=== PATIENT | female | born 1960 | race Two or more races ===

== ENCOUNTER 2017-11-16 16:46 | Emergency (ER) | payer OTHER ==
--- NOTE | 2017-11-16 17:24 | ER Document Report ---
ED Medical Screen (RME) - General Chief Complaint: Arrhythmia Stated Complaint: SHORTNESS OF BREATH Time Seen by Provider: 11/16/17 17:10 Mode of Arrival: Ambulatory Information source: Patient Notes: Patient is a 57-year-old female with a history of cirrhosis of the liver presents to the emergency department complaining of shortness of breath and chest pain onset 1 month ago. Patient was sent here by the [place] clinic to rule out a blood clot or [place]. Patient states that her symptoms have been progressively getting worse over the past month. Patient states that her shortness of breath is worse with exertion. Patient denies any black or red stool. GENERAL: Alert, interacts well. No acute distress. HEAD: Normocephalic, Atraumatic. NECK: Full range of motion. Supple. Trachea midline. LUNGS: Clear to auscultation bilaterally, no wheezes, rales, or rhonchi. No respiratory distress. HEART: Systolic murmur. ABDOMEN: Soft, non-tender. Non-distended. Bowel sounds present in all 4 quadrants. EXTREMITIES: Moves all four extremities spontaneously. PSYCH: Normal affect, normal mood. I have greeted and performed a rapid initial assessment of this patient. A comprehensive ED assessment and evaluation of the patient, analysis of test results and completion of the medical decision making process will be conducted by additional ED providers. TRAVEL OUTSIDE OF THE [place] IN LAST 30 DAYS: No - Related Data Allergies/Adverse Reactions: No Known Allergies Allergy (Verified 11/16/17 16:47) Past Medical History - Social History Chew tobacco use (# tins/day): No Frequency of alcohol use: None Drug Abuse: None - Past Medical History Cardiac Medical History: Denies: Hx Coronary Artery Disease, Hx Heart Attack, Hx Hypertension Pulmonary Medical History: Denies: Hx Asthma, Hx Bronchitis, Hx COPD, Hx Pneumonia Neurological Medical History: Denies: Hx Cerebrovascular Accident, Hx Seizures Renal/ Medical History: Denies: Hx Peritoneal Dialysis Musculoskeltal Medical History: Denies Hx Arthritis Past Surgical History: Reports: Hx Hysterectomy - Immunizations Hx Diphtheria, Pertussis, Tetanus Vaccination: Yes Physical Exam - Vital signs Vitals: Temp Pulse Resp BP Pulse Ox 98.0 F 74 18 142/75 H 93 11/16/17 16:57 11/16/17 16:57 11/16/17 16:57 11/16/17 16:57 11/16/17 16:57 Course - Vital Signs Vital signs: Temp Pulse Resp BP Pulse Ox 98.0 F 74 18 142/75 H 93 11/16/17 16:57 11/16/17 16:57 11/16/17 16:57 11/16/17 16:57 11/16/17 16:57 Scribe Documentation - Scribe Written by Jarett:: Jarett Nichols, 11/15/2017 17:28 acting as scribe for :: Sean
--- NOTE | 2017-11-16 17:38 | RADIOLOGY REPORT (SQ) ---
EXAM DESCRIPTION: CHEST PA/LAT COMPLETED DATE/TIME: 11/16/2017 5:30 pm REASON FOR STUDY: sob COMPARISON: None. EXAM PARAMETERS: NUMBER OF VIEWS: two views TECHNIQUE: Digital Frontal and Lateral radiographic views of the chest acquired. RADIATION DOSE: NA LIMITATIONS: none FINDINGS: LUNGS AND PLEURA: No localized infiltrates are present. The interstitial markings are pro minent. MEDIASTINUM AND HILAR STRUCTURES: No masses or contour abnormalities. HEART AND VASCULAR STRUCTURES: Heart normal size. No evidence for failure. BONES: No acute findings. HARDWARE: None in the chest. OTHER: No other significant finding. IMPRESSION: There appear to be mild chronic interstitial changes. No localized pneumonia is seen. TECHNICAL DOCUMENTATION: JOB ID: [id number] [employer]- All Rights Reserved Reading location - IP/workstation name: [email or web address]
[2017-11-16 17:53] LABS: ABSOLUTE EOSINOPHILS # (AUTO) 0.2 10^3/uL (0.0-0.6); ABSOLUTE MONOCYTES (AUTO) 0.4 10^3/uL (0.1-1.4); ABSOLUTE NEUT (AUTO) 1.8 10^3/uL (1.7-8.2); BASOPHILS % (AUTO) 0.8 % (0-2); EOSINOPHILS % (AUTO) 4.7 % (0-6); HEMATOCRIT 43.3 % (36.0-47.0); HEMOGLOBIN 15.2 g/dL (12.0-15.5); LYMPHOCYTES % (AUTO) 29.4 % (13-45); MEAN CORPUSCULAR HEMOGLOBIN 30.8 pg (27.0-33.4); MEAN CORPUSCULAR VOLUME 88 fl (80-97); MONOCYTES % (AUTO) 12.1 % (3-13); RED BLOOD COUNT 4.92 10^6/uL (3.72-5.28); RED CELL DISTRIBUTION WIDTH 15.5 % (11.5-14.0); TOTAL CELLS COUNTED % (AUTO) 100 %; WHITE BLOOD COUNT 3.5 10^3/uL (4.0-10.5)
[2017-11-16 18:09] LABS: ALANINE AMINOTRANSFERASE 29 U/L (9-52); ALBUMIN 3.4 g/dL (3.5-5.0); ALKALINE PHOSPHATASE 118 U/L (38-126); ANION GAP 8 (5-19); ASPARTATE AMINO TRANSFERASE 36 U/L (14-36); BILIRUBIN,DIRECT 0.9 mg/dL (0.0-0.4); BLOOD UREA NITROGEN 9 mg/dL (7-20); CALCIUM 8.5 mg/dL (8.4-10.2); CARBON DIOXIDE 23 mmol/L (22-30); CHLORIDE 113 mmol/L (98-107); GLUCOSE 72 mg/dL (75-110); POTASSIUM 3.8 mmol/L (3.6-5.0); SODIUM 143.7 mmol/L (137-145); TOTAL PROTEIN 6.4 g/dL (6.3-8.2)
[2017-11-16 18:18] LABS: PLATELET COUNT 52 10^3/uL (150-450)
[2017-11-16 18:20] LABS: NT PRO BNP 59 pg/mL (5-900)
[2017-11-16 18:23] LABS: TROPONIN I < 0.012 ng/mL
--- NOTE | 2017-11-16 19:03 | ER Document Report ---
ED General - General Chief Complaint: Breathing Difficulty Stated Complaint: SHORTNESS OF BREATH Time Seen by Provider: 11/16/17 17:10 Mode of Arrival: Ambulatory Notes: Patient is a 57-year-old female with a past medical history of liver cirrhosis secondary to hepatitis C who presents with 1 month of progressively worsening shortness of breath and chest discomfort. She describes shortness of breath has been constant but much significantly worsened by exertion. She reports that even bending over or walking to the restroom gets her completely out of breath. She saw her primary doctor at the [place] today and was referred to the emergency department for further evaluation due to her reported concerns and noted hypoxia in the clinic. She denies any former use of tobacco, no exposure to inhalation injuries, and no known history of COPD, asthma, congestive heart failure, or fibrotic lung disease. She does report 2 years ago she had a bronchoscopy done at [facility] when she was having hemoptysis. She states that they noted several lesions in her lung but did not biopsy due to concern of baseline thrombocytopenia secondary to her cirrhosis. Patient states nothing is new or different about her symptoms that prompted a visit to the emergency department other than her [place] doctor telling her that she needed to be seen urgently. She does describe her pain in her chest as being more of a tightness that is present when she is exerting herself or when she becomes very short of breath. No radiation of the pain. Nothing improves or worsens her symptoms. Prior to the past 1 month she denies any history of similar symptoms in the past. TRAVEL OUTSIDE OF THE [place] IN LAST 30 DAYS: No - Related Data Allergies/Adverse Reactions: No Known Allergies Allergy (Verified 11/16/17 16:47) Past Medical History - General Information source: Patient - Social History Smoking Status: Never Smoker Chew tobacco use (# tins/day): No Frequency of alcohol use: None Drug Abuse: None Lives with: Alone Family History: Reviewed & Not Pertinent Patient has suicidal ideation: No Patient has homicidal ideation: No - Past Medical History Cardiac Medical History: Denies: Hx Coronary Artery Disease, Hx Heart Attack, Hx Hypertension Pulmonary Medical History: Denies: Hx Asthma, Hx Bronchitis, Hx COPD, Hx Pneumonia Neurological Medical History: Denies: Hx Cerebrovascular Accident, Hx Seizures Renal/ Medical History: Denies: Hx Peritoneal Dialysis Musculoskeltal Medical History: Denies Hx Arthritis Past Surgical History: Reports: Hx Section, Hx Hysterectomy - Immunizations Hx Diphtheria, Pertussis, Tetanus Vaccination: Yes Review of Systems - Review of Systems Notes: Constitutional: Negative for fever. HENT: Negative for sore throat. Eyes: Negative for visual changes. Cardiovascular: Positive for chest pain. Respiratory: Positive for shortness of breath. Gastrointestinal: Negative for abdominal pain, vomiting or diarrhea. Genitourinary: Negative for dysuria. Musculoskeletal: Negative for back pain. Skin: Negative for rash. Neurological: Negative for headaches, weakness or numbness. 10 point ROS negative except as marked above and in HPI. Physical Exam - Vital signs Vitals: Temp Pulse Resp BP Pulse Ox 98.0 F 74 18 142/75 H 93 11/16/17 16:57 11/16/17 16:57 11/16/17 16:57 11/16/17 16:57 11/16/17 16:57 Interpretation: Hypoxic Notes: PHYSICAL EXAMINATION: GENERAL: Well-appearing, well-nourished and in no acute distress. HEAD: Atraumatic, normocephalic. EYES: Pupils equal round and reactive to light, extraocular movements intact, sclera anicteric, conjunctiva are normal. ENT: nares patent, oropharynx clear without exudates. Moist mucous membranes. NECK: Normal range of motion, supple without lymphadenopathy LUNGS: Mild dyspnea. Does become short of breath easily simply with talking to me during examination. Breath sounds clear to auscultation bilaterally and equal. No wheezes rales or rhonchi. HEART: Regular rate and rhythm without murmurs ABDOMEN: Soft, nontender, normoactive bowel sounds. No guarding, no rebound. No masses appreciated. EXTREMITIES: Normal range of motion, no pitting or edema. No cyanosis. NEUROLOGICAL: No focal neurological deficits. Moves all extremities spontaneously and on command. PSYCH: Normal mood, normal affect. SKIN: Warm, Dry, normal turgor, no rashes or lesions noted. Course - Re-evaluation Re-evalutation: 11/16/17 19:00 Patient presents with 1 month of progressively worsening dyspnea, most intense with exertion although on review of history it appears that this is been ongoing for close to 2 years. Patient does relate that she had a bronchoscopy 2 years ago at [facility] but they did not biopsy due to concerns of her thrombocytopenia (related to underlying cirrhosis from hepatitis C status post curative treatment). The fruit grader operator did tell the patient that he noted several lesions but did not biopsy them due to this concern. The patient has no smoking history and her clinical exam and history are not consistent with an obstructive lung disease such as asthma or COPD. Her troponin is negative and her EKG is likewise unremarkable. Her clinical history is not at all consistent with CHF or an [place]. A pulmonary embolus is certainly in the differential although again this is much more chronic picture and I think it would be unlikely that the patient would have a chronic pulmonary embolus that would continue to cause her persistent symptoms. Her chest x-ray does show chronic interstitial changes worrisome for restrictive lung pathology such as pulmonary fibrosis. Moreover, the patient is saturating 92% just sitting in the bed and appears somewhat dyspneic even from talking for several minutes. I suspect that much of her exertional dyspnea is due to hypoxia on exertion. Will therefore proceed with a CTA to definitively exclude a pulmonary embolus as well as to further evaluate the nature of the interstitial changes seen on chest x-ray. Will also ambulate the patient on a pulse ox to clarify exactly how hypoxic she becomes with minimal exertion. Anticipate that the patient will require transfer to a tertiary receiving facility with pulmonology capabilities. 11/16/17 19:17 Patient has been ambulated on pulse oximeter and drops to 86% on room air with less than 1 lap throughout the emergency department. 11/16/17 21:27 CTA of the chest is clear without any evidence of an acute pulmonary embolus but interestingly also does not show any interstitial changes that were seen on the chest x-ray. We do not currently have pulmonology available at this facility. I will discuss with our hospitalist to see if this is something we could hospitalize here versus it would require transfer. 11/16/17 22:19 I have discussed the results of the patient's CT scan with her as well as my concern for an intrinsic lung disease likely restrictive lung pathology as well as my concerns of her hypoxia particular with ambulation. Patient has been witnessed on multiple occasions while here in the emergency department and becoming dyspneic with minimal exertion. With her son Zac on the phone I have discussed with the patient my desire to transfer to a facility where they have a fruit grader operator who can evaluate her with pulmonary function testing as well as a bronchoscopy. However, the patient has declined stating she would rather follow-up as an outpatient as she does not wish to leave her car here in the emergency department parking lot, does not wish to drive to facility tonight , and does not wish to pay the bill for transfer. The patient has chosen to leave the facility against medical advice. The relevant issues have been reviewed and discussed with the patient and family at the bedside. At the time of this assessment there is no indication for involuntary commitment. The patient is alert, oriented, and able to express clearly their reasoning for not wanting to remain in the emergency department for further treatment. The patient is not clinically psychotic, intoxicated, and denies and suicidal ideation. Differential or suspected diagnoses based on medical screening exam: Hypoxia, restrictive lung disease The patient is aware of the concerning diagnoses and acknowledges understanding of the reasons for the following recommendations: Transfer to an alternative facility for pulmonary consultation, pulmonary function testing and consideration of bronchoscopy The following recommendations/services were offered and refused: Transfer to another facility, allowing the patient to drive to an alternative facility in transfer The following risks were explained: , permanent disability, loss of function, hypoxic brain injury, worsening of her underlying lung condition Clinical impression: Patient is competent to make decisions regarding the medical that is being offered. - Vital Signs Vital signs: Temp Pulse Resp BP Pulse Ox 98.4 F 79 14 140/81 H 93 11/16/17 22:36 11/16/17 22:36 11/16/17 22:36 11/16/17 22:36 11/16/17 22:36 - Laboratory Result Diagrams: 11/16/17 17:24 11/16/17 17:24 Laboratory results interpreted by me: 11/16/17 11/16/17 11/16/17 17:24 17:24 17:24 WBC 3.5 L RDW 15.5 H Plt Count 52 L PT 16.0 H Chloride 113 H Glucose 72 L Total Bilirubin 5.0 H Direct Bilirubin 0.9 H Albumin 3.4 L - Diagnostic Test Radiology reviewed: Image reviewed, Reports reviewed Radiology results interpreted by me: 11/16/17 19:03 Chest x-ray: Bilateral interstitial changes that appear chronic - EKG Interpretation by Me Additional EKG results interpreted by me: 11/17/17 02:46 Normal sinus rhythm. Rate 75. LVH. No ST elevations or depressions. QTC is 505. Discharge - Discharge Clinical Impression: Hypoxia, Dyspnea and respiratory abnormalities Condition: Serious Disposition: AGAINST MEDICAL ADVICE Additional Instructions: Your leaving the hospital AGAINST MEDICAL ADVICE today. I am very concerned that your oxygen level is dropping when you walk. This explains why you are so tired and why it is so hard for you to exert yourself. I believe the cause of this is due to an illness in your lungs that has been there for some time but it seems to have gotten worse over the last month. My primary concern is for restrictive lung disease such as pulmonary fibrosis. Your CT scan today does not show evidence of a blood clot, your labs do not suggest any issue with your heart. I have encouraged you to allow me to transfer you to a different hospital so that I can have a lung doctor perform a bronchoscopy on you as well as pulmonary function testing to better clarify the source of your low oxygen level. You have declined this offer and are electing to go home today to follow -up as an outpatient. Please return to the emergency department at any point if you would like us to complete a transfer or if you have any additional concerns. You are always welcome back here at any time.
--- NOTE | 2017-11-16 20:44 | EKG REPORT ---
SEVERITY:- ABNORMAL ECG - SINUS RHYTHM PROBABLE LEFT ATRIAL ABNORMALITY RBBB AND LAFB LEFT VENTRICULAR HYPERTROPHY : Confirmed by: Trever Ware MD 16-Nov-2017 20:43:35
--- NOTE | 2017-11-16 21:06 | RADIOLOGY REPORT (SQ) ---
EXAM DESCRIPTION: CTA CHEST COMPLETED DATE/TIME: 11/16/2017 8:53 pm REASON FOR STUDY: hypoxia, sob COMPARISON: Correlation made to CT abdomen from 08/23/2016. TECHNIQUE: CT scan of the chest performed using helical scanning technique with dynamic intravenous contrast injection. Images reviewed with lung, soft tissue and bone windows. Reconstructed coronal and sagittal MPR images reviewed. Additional 3 dimensional post-processing performed to develop Maximal Intensity Projection images (VT P). All images stored on PACS. All CT scanners at this facility use dose modulation, iterative reconstruction, and/or weight based d osing when appropriate to reduce radiation dose to as low as reasonably achievable (ALARA). [facility]: Dose Right [facility]: CareDose [facility]: Dose Right [facility]: Teradose 4D [facility]: real trends CONTRAST TYPE AND DOSE: contrast/concentration: Isovue 370.00 mg/ml; Total Contrast Delivered: 79.0 ml; Total Saline Delivered: 90.0 ml Contrast bolus optimized for the pulmonary arteries. Not diagnostic for the aorta. RENAL FUNCTION: GFR > 60. RADIATION DOSE: CT Rad equipment meets quality standard of care and radiation dose reduction techniq ues were employed. CTDIvol: 16.5 - 19.3 mGy. DLP: 741 mGy-cm. . LIMITATIONS: None. FINDINGS: LUNGS AND PLEURA: No masses, infiltrates, pneumothorax. No pleural effusions, calcificati ons. AORTA AND GREAT VESSELS: No aneurysm. Contrast bolus not optimized for the aorta. HEART: Cardiomegaly. No pericardial effusion. No significant coronary artery calcifications. PULMONARY ARTERIES: No emboli visualized in the main pulmonary arteries or the segmental branches. HILAR AND MEDIASTINAL STRUCTURES: No identified masses or abnormal nodes. HARDWARE: None in the chest. UPPER ABDOMEN: Cirrhotic liver and splenomegaly unchanged from prior study. THYROID AND OTHER SOFT TISSUES: No masses. No adenopathy. BONES: No acute or significant finding. 3D MIPS: Confirm above findings. OTHER: No other significant finding. IMPRESSION: NO ACUTE INTRATHORACIC PROCESS. NO PULMONARY EMBOLI. CARDIOMEGALY. CIRRHOSIS WITH SPLENOMEGALY. COMMENT: Quality ID # [id number]: Final reports with documentation of one or more dose reduction techniques (e.g., Automated exposure control, adjustment of the mA and/or kV according to patient size, use of iterative reconstruction technique) TECHNICAL DOCUMENTATION: JOB ID: [id number] [employer]- All Rights Reserved Reading location - IP/workstation name: [email or web address]
[2017-11-16 22:06] VITALS: BP 140/81
== END 2017-11-16 22:37 | disposition left against medical advice (07) ==
LOC: ER 16:46
DX: R09.02 Hypoxemia (principal); R06.09 Other forms of dyspnea; R07.9 Chest pain, unspecified; K74.60 Unspecified cirrhosis of liver; B19.20 Unspecified viral hepatitis C without hepatic coma
CPT/HCPCS: 36415; 71046; 71275; 80053; 83735; 83880; 84484; 85025; 85610; 93005; 93010; 99285

== ENCOUNTER 2018-10-07 09:47 | Emergency (ER) | payer OTHER ==
[2018-10-07] MEDS ORDERED: ALBUTEROL SULFATE 0.083% NEB 2.5 MG/3 ML AMPUL NEB ONE (10:39)
--- NOTE | 2018-10-07 10:41 | ER Document Report ---
ED Medical Screen (RME) - General Chief Complaint: Shortness Of Breath Stated Complaint: CONGESTION Time Seen by Provider: 10/07/18 10:34 Notes: 58-year-old female to emergency department chief complaint of shortness of breath. Reportedly has liver failure. Was told that she is having complications from her liver failure causing her lungs to be congested and getting fluid in them. Was seen in [facility] recently for the same. Went to the urgent care but sent here because her oxygen levels were too low. Apparently was seen at the urgent care and oxygen level was 80% on room air with exertion. I have greeted and performed a rapid initial assessment of this patient. A comprehensive ED assessment and evaluation of the patient, analysis of test results and completion of the medical decision making process will be conducted by additional ED providers. TRAVEL OUTSIDE OF THE [place] IN LAST 30 DAYS: No - Related Data Allergies/Adverse Reactions: No Known Allergies Allergy (Verified 10/07/18 09:50) Past Medical History - Past Medical History Cardiac Medical History: Denies: Hx Coronary Artery Disease, Hx Heart Attack, Hx Hypertension Pulmonary Medical History: Denies: Hx Asthma, Hx Bronchitis, Hx COPD, Hx Pneumonia Neurological Medical History: Denies: Hx Cerebrovascular Accident, Hx Seizures Renal/ Medical History: Denies: Hx Peritoneal Dialysis Musculoskeltal Medical History: Denies Hx Arthritis Past Surgical History: Reports: Hx Section, Hx Hysterectomy - Immunizations Hx Diphtheria, Pertussis, Tetanus Vaccination: Yes Physical Exam - Vital signs Vitals: Temp Pulse Resp BP Pulse Ox 99.0 F 75 24 H 144/72 H 92 10/07/18 10:03 10/07/18 10:03 10/07/18 10:03 10/07/18 10:03 10/07/18 10:03 Course - Vital Signs Vital signs: Temp Pulse Resp BP Pulse Ox 99.0 F 75 24 H 144/72 H 92 10/07/18 10:03 10/07/18 10:03 10/07/18 10:03 10/07/18 10:03 10/07/18 10:03
[2018-10-07 11:33] LABS: ABSOLUTE LYMPHOCYTES (AUTO) 0.7 10^3/uL (0.5-4.7); ABSOLUTE MONOCYTES (AUTO) 0.5 10^3/uL (0.1-1.4); ABSOLUTE NEUT (AUTO) 3.4 10^3/uL (1.7-8.2); BASOPHILS % (AUTO) 0.4 % (0-2); EOSINOPHILS % (AUTO) 0.4 % (0-6); HEMATOCRIT 41.8 % (36.0-47.0); HEMOGLOBIN 14.9 g/dL (12.0-15.5); LYMPHOCYTES % (AUTO) 14.4 % (13-45); MEAN CORPUSCULAR HEMOGLOBIN 30.8 pg (27.0-33.4); MEAN CORPUSCULAR HGB CONC 35.6 g/dL (32.0-36.0); MEAN CORPUSCULAR VOLUME 87 fl (80-97); MONOCYTES % (AUTO) 10.8 % (3-13); RED BLOOD COUNT 4.82 10^6/uL (3.72-5.28); TOTAL CELLS COUNTED % (AUTO) 100 %; WHITE BLOOD COUNT 4.6 10^3/uL (4.0-10.5)
[2018-10-07 11:42] LABS: ALANINE AMINOTRANSFERASE 25 U/L (9-52); ALBUMIN 3.5 g/dL (3.5-5.0); ALKALINE PHOSPHATASE 114 U/L (38-126); ANION GAP 8 (5-19); ASPARTATE AMINO TRANSFERASE 31 U/L (14-36); BILIRUBIN,DIRECT 0.7 mg/dL (0.0-0.4); BILIRUBIN,TOTAL 4.2 mg/dL (0.2-1.3); BLOOD UREA NITROGEN 8 mg/dL (7-20); CALCIUM 8.2 mg/dL (8.4-10.2); CARBON DIOXIDE 24 mmol/L (22-30); CHLORIDE 110 mmol/L (98-107); GLUCOSE 101 mg/dL (75-110); POTASSIUM 4.3 mmol/L (3.6-5.0); SODIUM 141.5 mmol/L (137-145); TOTAL PROTEIN 6.5 g/dL (6.3-8.2)
--- NOTE | 2018-10-07 11:46 | RADIOLOGY REPORT (SQ) ---
EXAM DESCRIPTION: CHEST 2 VIEWS COMPLETED DATE/TIME: 10/07/2018 11:36 am REASON FOR STUDY: sob COMPARISON: Two-view chest 11/16/2017 CT angio chest 11/16/2017 EXAM PARAMETERS: NUMBER OF VIEWS: two views TECHNIQUE: Digital Frontal and Lateral radiographic views of the chest acquired. RADIATION DOSE: NA LIMITATIONS: none FINDINGS: LUNGS AND PLEURA: Collapse and consolidation in the lateral aspect right middle lobe worri some for pneumonia. Pulmonary vascular congestion without pulmonary edema or pleural effusions. No pneumothorax. MEDIASTINUM AND HILAR STRUCTURES: No masses or contour abnormalities. HEART AND VASCULAR STRUCTURES: Heart normal size. No evidence for failure. BONES: No acute findings. HARDWARE: None in the chest. OTHER: No other significant finding. IMPRESSION: Collapse and consolidation lateral half right middle lobe worrisome for pneumonia TECHNICAL DOCUMENTATION: JOB ID: [id number] [employer]- All Rights Reserved Reading location - IP/workstation name: [email or web address]
[2018-10-07 11:56] LABS: NT PRO BNP 148 pg/mL (5-900)
[2018-10-07 12:00] LABS: PLATELET COUNT 75 10^3/uL (150-450)
[2018-10-07 12:01] LABS: TROPONIN I < 0.012 ng/mL
[2018-10-07] MEDS ORDERED: CEFTRIAXONE 1 GM/D5W RTU 1 GM/50 ML RTUPB IV ONE (13:03)
[2018-10-07] MEDS ORDERED: LEVOFLOXACIN 750 MG TABLET PO ONE (13:41)
[2018-10-07] MEDS ORDERED: ALBUTEROL SULFATE HFA (90 MCG/PUFF) 8 GM MDI (1 MDI/ER DISP) IH ONE (13:41)
--- NOTE | 2018-10-07 13:51 | ER Document Report ---
ED General - General Chief Complaint: Shortness Of Breath Stated Complaint: CONGESTION Time Seen by Provider: 10/07/18 10:34 TRAVEL OUTSIDE OF THE [place] IN LAST 30 DAYS: No - HPI Patient complains to provider of: Shortness of breath congestion Notes: Patient was seen by triage provider notes provided below 58-year-old female to emergency department chief complaint of shortness of breath. Reportedly has liver failure. Was told that she is having complications from her liver failure causing her lungs to be congested and getting fluid in them. Was seen in [facility] recently for the same. Went to the urgent care but sent here because her oxygen levels were too low. Apparently was seen at the urgent care and oxygen level was 80% on room air with exertion. Patient upon my evaluation states that she is having some shortness of breath denies any recent antibiotics. Patient denies any recent hospitalizations. Patient is speaking complete sentences states normally on oxygen at home. Patient otherwise looks to be nontoxic denies fever states night sweats A brief review of the patient's past medical records available in [email or web address] was performed - Related Data Allergies/Adverse Reactions: No Known Allergies Allergy (Verified 10/07/18 09:50) Past Medical History - Social History Smoking Status: Never Smoker Chew tobacco use (# tins/day): No Frequency of alcohol use: None Drug Abuse: None Family History: Reviewed & Not Pertinent Patient has suicidal ideation: No Patient has homicidal ideation: No - Past Medical History Cardiac Medical History: Denies: Hx Coronary Artery Disease, Hx Heart Attack, Hx Hypertension Pulmonary Medical History: Denies: Hx Asthma, Hx Bronchitis, Hx COPD, Hx Pneumonia Neurological Medical History: Denies: Hx Cerebrovascular Accident, Hx Seizures Renal/ Medical History: Denies: Hx Peritoneal Dialysis Musculoskeletal Medical History: Denies Hx Arthritis Past Surgical History: Reports: Hx Section, Hx Hysterectomy - Immunizations Hx Diphtheria, Pertussis, Tetanus Vaccination: Yes Review of Systems - Review of Systems Constitutional: No symptoms reported EENT: No symptoms reported Cardiovascular: No symptoms reported Respiratory: Cough, Short of breath Gastrointestinal: No symptoms reported Genitourinary: No symptoms reported Female Genitourinary: No symptoms reported Musculoskeletal: No symptoms reported Skin: No symptoms reported Hematologic/Lymphatic: No symptoms reported Neurological/Psychological: No symptoms reported -: Yes All other systems reviewed and negative Physical Exam - Vital signs Vitals: Temp Pulse Resp BP Pulse Ox 99.0 F 75 24 H 144/72 H 92 10/07/18 10:03 10/07/18 10:03 10/07/18 10:03 10/07/18 10:03 10/07/18 10:03 Interpretation: Normal - General General appearance: Appears well, Alert - HEENT Head: Normocephalic, Atraumatic Eyes: Normal Pupils: PERRL - Respiratory Respiratory status: No respiratory distress Chest status: Nontender Breath sounds: Rhonchi, Wheezing Chest palpation: Normal - Cardiovascular Rhythm: Regular Heart sounds: Normal auscultation Murmur: No - Abdominal Inspection: Normal Distension: No distension Bowel sounds: Normal Tenderness: Nontender Organomegaly: No organomegaly - Back Back: Normal, Nontender - Extremities General upper extremity: Normal inspection, Nontender, Normal color, Normal ROM, Normal temperature General lower extremity: Normal inspection, Nontender, Normal color, Normal ROM, Normal temperature, Normal weight bearing. No: Danyel's sign - Neurological Neuro grossly intact: Yes Cognition: Normal Orientation: AAOx4 Nicole Coma Scale Eye Opening: Spontaneous Nicole Coma Scale Verbal: Oriented [place] Coma Scale Motor: Obeys Commands Nicole Coma Scale Total: 15 Speech: Normal Motor strength normal: LUE, RUE, LLE, RLE Sensory: Normal - Psychological Associated symptoms: Normal affect, Normal mood - Skin Skin Temperature: Warm Skin Moisture: Dry Skin Color: Normal Course - Re-evaluation Re-evalutation: 10/07/18 18:13 Patient states feeling better after breathing treatment chest x-ray is concerning for possible pneumonia. Patient was offered admission to the hospital but states that she feels better and thinks that she can tolerate oral medications at home. Patient upon her request will be discharged home to follow-up with primary care physician - Vital Signs Vital signs: Temp Pulse Resp BP Pulse Ox 99.0 F 75 14 129/64 H 94 10/07/18 10:03 10/07/18 10:03 10/07/18 14:02 10/07/18 14:02 10/07/18 14:02 - Laboratory Result Diagrams: 10/07/18 11:13 10/07/18 11:13 Laboratory results interpreted by me: 10/07/18 10/07/18 11:13 11:13 RDW 15.0 H Plt Count 75 L Chloride 110 H Calcium 8.2 L Total Bilirubin 4.2 H Direct Bilirubin 0.7 H Discharge - Discharge Clinical Impression: Pneumonia Qualifiers: Pneumonia type: due to unspecified organism Laterality: right Lung location: middle lobe of lung Qualified Code(s): J18.1 - Lobar pneumonia, unspecified organism Condition: Good Disposition: HOME, SELF-CARE Instructions: Levofloxacin, Pneumonia ([facility]) Additional Instructions: Your chest x-ray today is is consistent with a developing pneumonia. I would recommend he continue her oxygen at home please take the antibiotics as prescribed please use the inhaler as needed for any shortness of breath. Return to ER if you feel like you are worsening please follow-up with your primary care physician in 2-3 days. Prescriptions: Levofloxacin [Levaquin 500 mg Tablet] 500 mg PO DAILY #9 tablet Forms: Return to Work
[2018-10-07 14:06] VITALS: BP 129/64
--- NOTE | 2018-10-07 16:56 | EKG REPORT ---
SEVERITY:- ABNORMAL ECG - SINUS RHYTHM RBBB AND LAFB PROBABLE LEFT VENTRICULAR HYPERTROPHY : Confirmed by: Dixie Gutiérrez 07-Oct-2018 16:55:33
== END 2018-10-07 14:25 | disposition home or self-care (01) ==
LOC: ER 09:47
DX: J18.1 Lobar pneumonia, unspecified organism (principal); R06.02 Shortness of breath; R09.81 Nasal congestion
CPT/HCPCS: 93005; 99285; 96365; 36415; 85025; 80053; 84484; 83880; 71046; 93010; J0696; J3490

== ENCOUNTER → 2019-01-07 | Outpatient (CLI) | payer OTHER ==
--- NOTE | 2019-01-08 10:48 | WOMENS IMAGING REPORT ---
EXAM DESCRIPTION: BILAT SCREENING MAMMO W/CAD COMPLETED DATE/TIME: 01/07/2019 3:57 pm REASON FOR STUDY: Z12.31 ROUTINE BILATERAL SCREENING Z12.31 ENCNTR SCREEN MAMMOGRAM FOR MALIGNANT N EOPLASM OF JEREMIAS COMPARISON: 2015 TECHNIQUE: Standard craniocaudal and mediolateral oblique views of each breast recorded using HERMEL DELORa l acquisition. LIMITATIONS: None. FINDINGS: No masses, calcifications or architectural distortion. No areas of suspicion. Read with the assistance of CAD. .OM - R2 Knowledge Engineer Version 9.2 IMPRESSION: NORMAL MAMMOGRAM. BIRADS 1. BREAST DENSITY: c. The breasts are heterogeneously dense, which may obscure small masses. BIRAD: 1 NEGATIVE RECOMMENDATION: ROUTINE SCREENING COMMENT: The patient has been notified of the results by letter per MQSA requirements. Additional no tification policies are in place for contacting patient with suspicious or incomplete findings. Quality ID #[id number]: The [employer] recommends an annual screening mammogram for women aged 40 years or over. This facility utilizes a reminder system to ensure that all patients receive reminder letters, and/or direct phone calls for appointments. This includes reminders for routine scr eening mammograms, diagnostic mammograms, or other Breast Imaging Interventions when appropriate. Th is patient will be placed in the appropriate reminder system. TECHNICAL DOCUMENTATION: FINDING NUMBER: (1) ASSESSMENT: (1) JOB ID: [id number] [employer]- All Rights Reserved Reading location - IP/workstation name: [email or web address]
== END ==
LOC: WI 15:27
PROVIDERS: ATTEND Physician Assistant
DX: Z12.31 Encounter for screening mammogram for malignant neoplasm of breast (principal)
CPT/HCPCS: 77067

== ENCOUNTER 2019-07-22 11:17 | Day surgery (SDC) | payer OTHER ==
[2019-07-22] MEDS ORDERED: MIDAZOLAM 2 MG/2 ML INJ ONE (11:47)
[2019-07-22] MEDS ORDERED: PROPOFOL INJ 200 MG/20 ML VIAL IV ONE (11:47)
[2019-07-22] MEDS ORDERED: FENTANYL CITRATE INJ/PF 100 MCG/2 ML AMPUL IV PRN ×2 (13:13)
[2019-07-22] MEDS ORDERED: MEPERIDINE HCL/PF INJ 25 MG/1 ML DISP.SYRIN IV PRN (13:13)
[2019-07-22] MEDS ORDERED: PROMETHAZINE HCL INJ 25 MG/1 ML VIAL IV PRN (13:13)
[2019-07-22] MEDS ORDERED: DIPHENHYDRAMINE HCL 50 MG/ML VIAL IV PRN (13:13)
[2019-07-22 14:26] VITALS: BP 127/61
--- NOTE | 2019-07-22 14:39 | Operative Report ---
Operative Report DATE OF SURGERY: 07/22/19 Operative Report: The risks, benefits and alternatives of the procedure including the risk of bleeding, perforation requiring surgery have been explained to the patient in detail and informed consent has been obtained. The patient is taken back to the operating room and placed in the left, lateral decubital position. Timeout was called. Propofol medication is administered. Rectal examination is done which did not reveal any masses, tears or fissures. An Olympus videoscope was inserted into the patient's rectum. Scope was then carefully advanced all the way to the cecum. Cecum was identified by the usual anatomical landmarks of the ileocecal valve as well as the appendiceal office. Photodocumentation is obtained. Scope was then sequentially pulled back via the various segments of the colon including the ascending colon, hepatic flexure, transverse colon, sp lenic flexure, descending colon finding to the rectosigmoid portions of the colon. Retroflexion maneuver is performed. PREOPERATIVE DIAGNOSIS: Left lower quadrant abdominal pain POSTOPERATIVE DIAGNOSIS: Random biopsies taken of the terminal ileum rule out Crohn's disease. Biopsies right side of the colon rule out collagenous colitis. Internal hemorrhoids OPERATION: Colonoscopy with biopsy SURGEON: LUCIAN ALFARO ANESTHESIA: LMAC TISSUE REMOVED OR ALTERED: As noted above. COMPLICATIONS: None. ESTIMATED BLOOD LOSS: None. INTRAOPERATIVE FINDINGS: As noted above. PROCEDURE: Patient tolerated the procedure well. No immediate postprocedure complications are noted. Patient is discharged in good condition. Discharge date 07/22/2019. Discharge diet: Regular. Discharge activity: Regular. 2 to 3-week follow-up to discuss findings. Patient is instructed to call the office or proceed to the emergency room should he be any further questions. Wait on the pathology.
== END 2019-07-22 14:20 | disposition home or self-care (01) ==
LOC: OROUT 11:17
PROVIDERS: ATTEND Internal Medicine Gastroenterology
DX: Z12.11 Encounter for screening for malignant neoplasm of colon (principal); K52.9 Noninfective gastroenteritis and colitis, unspecified; K64.8 Other hemorrhoids; Z86.010 Personal history of colon polyps; K74.60 Unspecified cirrhosis of liver; Z79.899 Other long term (current) drug therapy
CPT/HCPCS: 45380; 88305 ×2; 00811; J2250; J2704; 811

== ENCOUNTER → 2020-02-04 | Outpatient (CLI) | payer OTHER ==
[2020-02-04 13:21] LABS: INTERNATIONAL RATION (INR) 1.54; PROTHROMBIN TIME 18.7 SEC (11.4-15.4)
== END ==
LOC: OD 12:24
PROVIDERS: ATTEND Internal Medicine Gastroenterology
DX: K74.60 Unspecified cirrhosis of liver (principal)
CPT/HCPCS: 36415; 85610

== ENCOUNTER 2020-03-19 07:59 | Day surgery (SDC) | payer OTHER ==
[~2020-03-19 07:59] MED LIST: PROPOFOL INJ 200 MG/20 ML VIAL IV ONE
[2020-03-19] MEDS ORDERED: LIDOCAINE 2% INJ (20 MG/ML) 20 ML MDV ONE (09:21)
--- NOTE | 2020-03-19 09:30 | Operative Report ---
Operative Report DATE OF SURGERY: 03/19/20 Operative Report: The risks benefits and alternatives of the procedure explained to the patient in detail and informed consent is obtained.A GIF Olympus video scope was inserted into the patient's mouth and hypopharynx, the esophagus is identified intubated and insufflated, the scope was then advanced through the esophagus stomach and duodenum, retroflexion maneuver is done ,the esophagus stomach and first and second portions of the duodenum examined PREOPERATIVE DIAGNOSIS: History of cirrhosis evaluation for esophageal varices POSTOPERATIVE DIAGNOSIS: No esophageal or gastric varices present. Mild gastritis status post biopsy. No AVMs noted OPERATION: EGD with biopsy SURGEON: LUCIAN ALFARO ANESTHESIA: LMAC TISSUE REMOVED OR ALTERED: As noted above. COMPLICATIONS: None. ESTIMATED BLOOD LOSS: None. INTRAOPERATIVE FINDINGS: As noted above. PROCEDURE: Patient tolerated the procedure well. No immediate postprocedure complications are noted. Patient is discharged in good condition. Discharge date 03/19/2020. Discharge diet: Regular. Discharge activity: Regular. 2 to 3-week follow-up to discuss findings. Patient is instructed call the office or proceed to the emergency room should there be any further problems or questions. Wait on the pathology.
[2020-03-19 10:02] VITALS: BP 128/86
== END 2020-03-19 10:10 | disposition home or self-care (01) ==
LOC: END 07:59
PROVIDERS: ATTEND Internal Medicine Gastroenterology
DX: K29.50 Unspecified chronic gastritis without bleeding (principal); K74.60 Unspecified cirrhosis of liver; I20.9 Angina pectoris, unspecified; M06.9 Rheumatoid arthritis, unspecified; R01.1 Cardiac murmur, unspecified; Z79.899 Other long term (current) drug therapy; Z87.01 Personal history of pneumonia (recurrent)
CPT/HCPCS: 43239; 87635; 88342 ×2; 88305 ×2; 00731; J3490; J2704; C9803; 731

== ENCOUNTER → 2020-03-26 | Outpatient (CLI) | payer OTHER ==
--- NOTE | 2020-03-26 11:29 | RADIOLOGY REPORT (SQ) ---
EXAM DESCRIPTION: CT CHEST WITHOUT IMAGES COMPLETED DATE/TIME: 03/26/2020 7:33 am REASON FOR STUDY: SOLITARY PULMONARY NODULE (R91.1), PERSONAL HX OF RECURRENT PNEUMONIA (Z87. R91.1 SOLITARY PULMONARY NODULE COMPARISON: 11/16/2017 CT chest TECHNIQUE: CT scan performed of the chest without intravenous contrast. Images reviewed with lung, soft tissue and bone windows. Reconstructed coronal and sagittal MPR images reviewed. All images st ored on PACS. All CT scanners at this facility use dose modulation, iterative reconstruction, and/or weight based d osing when appropriate to reduce radiation dose to as low as reasonably achievable (ALARA). [facility]: Dose Right [facility]: CareDose [facility]: Dose Right [facility]: Teradose 4D [facility]: Smart [employer] RADIATION DOSE: CT Rad equipment meets quality standard of care and radiation dose reduction techniq ues were employed. CTDIvol: 13.7 mGy. DLP: 534 mGy-cm. mGy. LIMITATIONS: No technical limitations. FINDINGS: LUNGS AND PLEURA: A 7 mm alveolar density is present in the left upper lobe axial image 15 . A 9 mm alveolar density is present in the left upper lobe on axial image 33. Remainder of the lungs are well inflated and grossly clear. No solid pulmonary nodule is identified. Airways are patent. No pleural effusion or pneumothorax. HILAR AND MEDIASTINAL STRUCTURES: No identified masses or abnormal nodes. No obvious aneurysm. HEART AND VASCULAR STRUCTURES: No aneurysm. No pericardial effusion. UPPER ABDOMEN: Nodular contour of the liver from cirrhosis. Clips post cholecystectomy. 2 mm right upper pole intrarenal nonobstructive stone. Spleen 18 cm AP diameter, similar compared to 11/16/2017. THYROID AND OTHER SOFT TISSUES: No masses. No adenopathy. BONES: No significant finding. HARDWARE: None in the chest. OTHER: No other significant findings. IMPRESSION: 7 mm and 9 mm ground-glass opacities in the left upper lobe. COMMENT: Fleischner Criteria for Ground Glass Nodules: >6 mm ground glass single nodule: CT 6-12 mo, then CT every 2 yr until 5 yr unless resolved TECHNICAL DOCUMENTATION: JOB ID: [id number] Quality ID # [id number]: Final reports with documentation of one or more dose reduction techniques (e.g., Au tomated exposure control, adjustment of the mA and/or kV according to patient size, use of iterative reconstruction technique) 2010 [employer]- All Rights Reserved Reading location - IP/workstation name: [email or web address]
== END ==
LOC: RAD 07:11
PROVIDERS: ATTEND Internal Medicine Critical Care Medicine
DX: R91.1 Solitary pulmonary nodule (principal); R91.8 Other nonspecific abnormal finding of lung field; Z87.01 Personal history of pneumonia (recurrent)
CPT/HCPCS: 71250